=== PATIENT | female | born 1970 | race Caucasian/White ===

== ENCOUNTER 2017-12-25 18:32 | Emergency (ER) | payer OTHER ==
[2017-12-25 21:53] LABS: KETONE, URINE AUTO RFX NEGATIVE (NEGATIVE); LEUKOCYTE ESTERASE UR AUTO RFX NEGATIVE (NEGATIVE); NITRITE, URINE AUTO RFX NEGATIVE (NEGATIVE); RBC, URINE AUTO RFX 0 /HPF (0-3); SPECIFIC GRAVITY UR AUTO RFX 1.004 (1.002-1.035); SQUAM EPITHELIAL CELL UR AURFX 0 /HPF (0-6); WBC, URINE AUTO RFX 0 /HPF (0-3)
[2017-12-25] MEDS: KETOROLAC 30 MG/ML VIAL (J1885) IV (22:20)
[2017-12-25] MEDS: NS 1,000 ML IV (22:20)
[2017-12-25 22:21] LABS: BASO % 0.7 % (0.0-1.0); EOS # 0.4 10^3/uL (0.0-0.50); EOS % 6.6 % (0.0-3.0); HEMATOCRIT 39.4 % (36.0-47.0); HEMOGLOBIN 13.4 g/dl (12.0-15.5); IMMATURE GRANULOCYTE % 0.2 % (0-3.0); LYMPH # 2.2 10^3/uL (1.5-4.5); LYMPH % 36.2 % (24.0-44.0); MEAN CORPUSCULAR HEMOGLOBIN 30.1 pg (27.0-33.0); MEAN CORPUSCULAR VOLUME 88.5 fl (80.0-96.0); MONO # 0.5 10^3/uL (0.0-0.8); MONO % 7.5 % (0.0-5.0); NEUTROPHILS % 48.8 % (36.0-66.0); PLATELET COUNT, AUTOMATED 242 10^3/uL (150-450); RED BLOOD COUNT 4.45 10^6/uL (4.00-5.40); RED CELL DISTRIBUTION WIDTH 12.8 % (11.5-14.5)
[2017-12-25 22:46] LABS: ALBUMIN 3.8 GM/DL (3.2-5.2); ALBUMIN/GLOBULIN RATIO 0.95 (1.00-1.93); ALKALINE PHOSPHATASE 89 U/L (45-117); ALT/SGPT 23 U/L (12-78); ANION GAP 8 MEQ/L (8-16); AST/SGOT 11 U/L (7-37); BILIRUBIN,TOTAL 0.4 MG/DL (0.2-1.0); BLOOD UREA NITROGEN 9 MG/DL (7-18); CARBON DIOXIDE LEVEL 28 MEQ/L (21-32); CHLORIDE LEVEL 107 MEQ/L (98-107); GLOMERULAR FILTRATION RATE > 60.0 (>58); GLUCOSE, FASTING 85 MG/DL (70-100); LIPASE 135 U/L (73-393); POTASSIUM SERUM 3.6 MEQ/L (3.5-5.1); SODIUM LEVEL 143 MEQ/L (136-145); TOTAL PROTEIN 7.8 GM/DL (6.4-8.2)
[2017-12-25] MEDS ORDERED: ISOVUE-370 76% 100ML VIAL (Q9967) As Ordered (23:06)
== END 2017-12-26 00:07 | disposition home or self-care (01) ==
LOC: M ED 12-26 00:07
DX: R10.30 Lower abdominal pain, unspecified (principal); R53.83 Other fatigue; E78.5 Hyperlipidemia, unspecified; D64.9 Anemia, unspecified; Z79.899 Other long term (current) drug therapy
CPT/HCPCS: Q9967

== ENCOUNTER 2018-03-30 09:52 | Day surgery (SDC) | payer OTHER ==
[2018-03-30] MEDS: NS 1,000 ML IV (06:00)
[2018-03-30] MEDS ORDERED: fentaNYL 100 MCG/2 ML INJECTION (J3010) As Ordered (10:27)
[2018-03-30] MEDS ORDERED: PROPOFOL 500 MG/50 ML VIAL As Ordered (10:37)
[2018-03-30] MEDS ORDERED: LIDOCAINE 2% INJ 100 MG/5 ML SDV (FOR ANES.) As Ordered (11:03)
[2018-03-30] MEDS ORDERED: ePHEDrine SULFATE 25 MG/5 ML(5MG/ML) SYRINGE As Ordered (11:22)
[2018-03-30] MEDS ORDERED: diphenhydrAMINE INJ 50MG/ML VIAL (J1200) As Ordered (11:47)
[2018-03-30] MEDS ORDERED: diphenhydrAMINE INJ 50MG/ML VIAL (J1200) IV (12:15)
== END 2018-03-30 13:18 | disposition home or self-care (01) ==
LOC: M OPP 09:52
DX: R10.84 Generalized abdominal pain (principal); K64.0 First degree hemorrhoids; K30 Functional dyspepsia; R10.13 Epigastric pain; R14.0 Abdominal distension (gaseous); K22.8 Other specified diseases of esophagus; R13.10 Dysphagia, unspecified
CPT/HCPCS: 45378

== ENCOUNTER 2018-08-15 18:00 | Emergency (ER) | payer OTHER ==
[~2018-08-15] VITALS: Ht 160 cm; Wt 68.2 kg
[~2018-08-15 18:00] MED LIST: FERR325T3 PO; KETO10TAB PO; LIPI20TA PO; MIRA3350 PO; VITA500C24 PO; [UNRECOGNIZED DRUG - OTHER]
[2018-08-15] MEDS ORDERED: KETOROLAC TROMETHAMINE 10 MG TAB PO ONE (20:00)
[2018-08-15] MEDS ORDERED: NAPR-837 PO (22:42)
[2018-08-15] MEDS ORDERED: BACLOFEN 10 MG TAB PO ONE (22:45)
[2018-08-15 22:56] VITALS: BP 118/76
--- NOTE | 2018-08-16 00:53 | REP ---
Clinical: Trauma/fall with left hip pain. Technique: Frontal view of the pelvis with neutral and frog lateral views of the left hip. Findings: Osseous structures and joint spaces are intact and normal. Hip joints appear symmetric on frontal pelvic radiograph. No acute fracture dislocation. No evidence for healed injury. No significant degenerative or congenital abnormalities are appreciated. Surrounding soft tissues are unremarkable. Impression: Normal pelvis and left hip series. Electronically Signed by Stephon Rodriguez MD 08/16/2018 12:45 A
--- NOTE | 2018-08-16 00:55 | REP ---
Clinical: Trauma/fall with left shoulder pain . Technique: Internal rotation, external rotation, and Y view. Findings: No acute fracture or dislocation. The acromioclavicular and glenohumeral joints are intact. No periarticular calcifications or degenerative changes are appreciated. Sub acromial space is normal. Surrounding soft tissues are unremarkable. Impression: Normal left shoulder radiographs. Electronically Signed by Stephon Rodriguez MD 08/16/2018 12:47 A
--- NOTE | 2018-08-16 01:53 | REP ---
Clinical: Trauma. Technique: AP, lateral, bilateral oblique views left wrist . Findings: The carpal bones, surrounding osseous structures, soft tissues, and joint spaces are normal. There is no evidence for acute fracture or dislocation. No subcutaneous emphysema or radiodense foreign body. Impression: Normal wrist series. No acute fracture or dislocation Electronically Signed by Stephon Rodriguez MD 08/16/2018 01:45 A
--- NOTE | 2018-08-16 10:39 | REP ---
Head CT without contrast: Repeat dictation. History: Injury in a fall. Preliminary report is provided at the time of exam by virtual radiology. Comparison study: No comparison head CT. CT findings: Bone window settings demonstrate an intact bony calvarium. There is no evidence of skull fracture or incidental bony calvarial lesion. The visualized paranasal sinuses appear clear. No intraorbital abnormality is seen. On soft tissue window setting images; the lateral, third, and fourth ventricles are normal in size and position. Young-white differentiation pattern is normal above and below the tentorium. There are is no evidence of intracranial hemorrhage. No mass, edema, infarction, or midline shift is seen. No extra-axial fluid collection is appreciated. Impression: Negative noncontrast head CT. Electronically Signed by Dominguez Carbajal MD 08/16/2018 10:30 A
--- NOTE | 2018-08-16 10:41 | REP ---
CT study of the cervical spine without contrast: Repeat dictation. History: Injury in a fall. Preliminary report is provided at time of exam by virtual radiology. Technique: Helical scanning is acquired and overlapping 2 mm high resolution axial images were generated and reviewed at bone and soft tissue window settings. Coronal and sagittal multiplanar re-formations images are generated. CT findings: There is no evidence of cervical spine element fracture. No skull base fracture is seen. Cervical vertebral body heights are preserved. Alignment is normal. Facet joints are normally aligned bilaterally at each cervical level on multiplanar re-formations images. There is no evidence of intraspinal or paraspinal hematoma. No extra vertebral abnormality is seen. Impression: Negative CT study of the cervical spine without contrast. No fracture seen. Electronically Signed by Dominguez Carbajal MD 08/16/2018 10:32 A
--- NOTE | 2018-08-16 10:42 | REP ---
CT study lumbar spine without contrast: Repeat dictation. History: Injury in a fall. Preliminary report is provided at the time of examination by virtual radiology. Technique: Helical scanning is acquired. Coronal and sagittal multiplanar re-formation images are generated along with axial images. CT findings: There is a dextroconvex curvature in the lumbar spine mild in degree. Lumbar vertebral body heights are preserved. No fracture or collapse is seen. Alignment is normal. There is no evidence of spondylolysis or spondylolisthesis. Disc spaces are maintained. No paravertebral soft-tissue mass or hematoma is observed. Impression: Dextroconvex lumbar curvature consistent with minimal scoliosis. No traumatic abnormality noted. Electronically Signed by Dominguez Carbajal MD 08/16/2018 11:23 A
--- NOTE | 2018-08-16 10:46 | REP ---
CT study of the thoracic spine without contrast: Repeat dictation. History: Injury in a fall. Preliminary report is provided at the time of the examination by [facility]. Technique: Helical scanning is acquired and 4 mm axial images are generated. Coronal and sagittal MPR images are generated. 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 Thoracic vertebral body heights are preserved and alignment is otherwise normal. There is minimal discogenic spurring in the lower thoracic levels. There is no evidence of fracture or collapse. No paravertebral soft tissue swelling or hematoma is seen. There is a bone island in the right pedicle at T12. This is not felt to be clinically significant. The visualized lung kaye are unremarkable. Impression: Minimal degenerative disc changes. Mild curvature. No significant abnormality. Electronically Signed by Dominguez Carbajal MD 08/16/2018 11:23 A
== END 2018-08-15 22:57 | disposition home or self-care (01) ==
LOC: M ED 18:00
DX: S80.01XA Contusion of right knee, initial encounter (principal); S80.02XA Contusion of left knee, initial encounter; W00.0XXA Fall on same level due to ice and snow, initial encounter; Y92.89 Other specified places as the place of occurrence of the external cause; Y99.0 Civilian activity done for income or pay; M54.2 Cervicalgia; M25.552 Pain in left hip; M25.532 Pain in left wrist; M25.512 Pain in left shoulder; E11.9 Type 2 diabetes mellitus without complications; E78.5 Hyperlipidemia, unspecified; D64.9 Anemia, unspecified; Z79.84 Long term (current) use of oral hypoglycemic drugs

== ENCOUNTER → 2019-06-14 | Outpatient (REF) | payer OTHER ==
[~2019-06-14] MED LIST changes: +NAPR-837 PO
== END ==
LOC: M LAB REF 14:02
PROVIDERS: ATTEND Physician Assistant Medical
DX: R50.9 Fever, unspecified (principal); R05 Cough